=== PATIENT | male | born 1980 ===

== ENCOUNTER 2016-07-01 10:48 | Emergency (ER) | payer MEDICAID ==
[2016-07-01 10:56] VITALS: BMI 26.4
[2016-07-01 11:06] VITALS: TEMP 98.5; O2SAT 99
[2016-07-01] MEDS ORDERED: TraMADol/Apap 37.5/325 mg Tab PO STA (11:52)
--- NOTE | 2016-07-01 11:56 | ED PDOC ---
Arrival/HPI - General Chief Complaint: Trauma Time Seen by Provider: 07/01/16 11:45 Historian: Patient - History of Present Illness Narrative History of Present Illness (Text): 07/01/16 11:53 35 y.o. male who says he was sitting on a chair which broke when he was sitting on it; he reports landing on the floor onto his lower back and toward the right hip. He says the metal part of the chair also hit him in the area. He denies hitting his head or having LOC. No abd pain. Past Medical History - Cardiac Hx Hypertension: Yes - Pulmonary Hx Asthma: Yes - Psychiatric Hx Substance Use: No - Surgical History Other/Comment: left shoulder sx Family/Social History Family/Social History: Unknown Family HX Smoking Status: Unknown If Ever Smoked Hx Alcohol Use: No Hx Substance Use: No Allergies/Home Meds Allergies/Adverse Reactions: Allergies prednisolone Allergy (Verified 07/01/16 10:56) ANAPHYLAXIS Home Medications: Home Meds Medication Instructions Recorded Confirmed Budesonide/Formoterol Fumarate 1 aer IH DAILY 07/01/16 07/01/16 [Symbicort] Losartan [Cozaar] 0 mg PO DAILY 07/01/16 07/01/16 Nebivolol [Bystolic] 0 mg PO DAILY 07/01/16 07/01/16 Review of Systems - Review of Systems Gastrointestinal: absent: Abdominal Pain, Nausea, Vomiting Musculoskeletal: Back Pain Physical Exam Vital Signs Temp Pulse Resp BP Pulse Ox 07/01/16 12:09 79 18 116/69 99 07/01/16 10:49 98.5 F 82 17 116/68 99 Temperature: Afebrile Blood Pressure: Normal Pulse: Regular Respiratory Rate: Normal Appearance: Positive for: Well-Appearing, Non-Toxic, Comfortable, Other ( morbidly obese) Pain Distress: Moderate Mental Status: Positive for: Alert and Oriented X 3 - Systems Exam Head: Present: Atraumatic, Normocephalic Respiratory/Chest: Present: Clear to Auscultation, Good Air Exchange. No: Respiratory Distress, Accessory Muscle Use Cardiovascular: Present: Regular Rate and Rhythm, Normal S1, S2. No: Murmurs Abdomen: Present: Normal Bowel Sounds. No: Tenderness, Distention, Peritoneal Signs Back: Present: Midline Tenderness (mild mid lumbar spine ttp; no stepoff) Lower Extremity: Present: Normal Inspection, Normal ROM, Tenderness (mild ttp lateral right hip). No: Edema, Swelling, Erythema, Deformity Neurological: Present: GCS=15, CN II-XII Intact, Speech Normal Skin: Present: Warm, Dry, Normal Color. No: Rashes Psychiatric: Present: Alert, Oriented x 3, Normal Insight, Normal Concentration Medical Decision Making ED Course and Treatment: 07/01/16 11:56 35 y.o. male, morbidly obese with back and hip pain s/p fall. Exam as noted. Differential: Bony contusion vs. muscle strain vs. less likely fracture Plan: - XR - Toradol / ultracet 07/01/16 13:25 XR: no fx as read by me. 07/01/16 13:25 Patient reports mild improvement in pain - ok for d/c to f/u his PMD in [place]. - RAD Interpretation Radiology Orders: 07/01/16 11:51 LS SPINE WITH OBL > 18 YRS OLD [RAD] Stat 07/01/16 11:52 HIP MIN 2V W/ PELVIS RT [RAD] Stat - Medication Orders Current Medication Orders: Discontinued Medications Ketorolac Tromethamine (Toradol) 60 mg IM STAT STA Stop: 07/01/16 11:53 Last Admin: 07/01/16 12:13 Dose: 60 mg Tramadol/Acetaminophen (Ultracet 37.5/325 Mg) 2 tab PO STAT STA Stop: 07/01/16 11:53 Last Admin: 07/01/16 12:13 Dose: 2 tab Disposition/Present on Arrival - Present on Arrival Any Indicators Present on Arrival: No History of DVT/PE: No History of Uncontrolled Diabetes: No Urinary Catheter: No History of Decub. Ulcer: No History Surgical Site Infection Following: None - Disposition Have Diagnosis and Disposition been Completed?: Yes Diagnosis: Low back strain, Right hip pain Disposition: HOME/ ROUTINE Disposition Time: 13:30 Patient Plan: Discharge Condition: GOOD Discharge Instructions (ExitCare): Acute Low Back Pain (ED) Additional Instructions: Take the medications as prescribed. Avoid heavy lifting. Follow up with your primary care doctor. Return to the emergency department if any new concerning symptoms. Prescriptions: Baclofen [Lioresal] 1 tab PO TID PRN #21 tab PRN Reason: Pain, Moderate (4-7) traMADol/Acetaminophen [Ultracet 325 MG-37.5 MG] 1 - 2 tab PO Q8H PRN #20 tab PRN Reason: Pain, Severe (8-10)
[2016-07-01 12:27] VITALS: RESP 18
[2016-07-01 13:26] VITALS: BP 114/65; PULSE 75
--- NOTE | 2016-07-01 13:50 | RAD ---
PROCEDURE: Radiographs of the Lumbar Spine. HISTORY: low back pain s/p fall COMPARISON: No prior. FINDINGS: BONES: Normal alignment. No listhesis. No compressive deformity. DISC SPACES: Unremarkable. OTHER FINDINGS: None. IMPRESSION: No compressive deformity. No dislocation. If symptoms persist, MRI should be considered.
--- NOTE | 2016-07-01 13:53 | RAD ---
Pelvis and right hip History: Right hip pain status post fall. Findings: No evidence of acute fracture. However, if symptoms persist, cross-sectional imaging particularly MRI should be considered.
== END 2016-07-01 13:45 | disposition home or self-care (01) ==
LOC: ED 10:48
DX: S39.012A Strain of muscle, fascia and tendon of lower back, initial encounter (principal); W07.XXXA Fall from chair, initial encounter; M25.551 Pain in right hip; I10 Essential (primary) hypertension
CPT/HCPCS: 72110; 73502; 96372; 99285; J1885